=== PATIENT | female | born 1980 | race Caucasian/White ===

== ENCOUNTER → 2021-06-20 | Outpatient (CLI) | payer SELFPAY ==
--- NOTE | 2021-06-20 12:20 | EMB_PTH ---
PATIENT: LUIS MCCARTY LOC: [facility] U#:[id number] AGE/SX: 40/F ROOM: RE06/20/[address]: Dr. Satya Wild MD : 1980 BED: DIS: 06/20/2021 SPEC #: [id number] RECD: 06/20/21 16:06 STATUS: OSORIO DAMICODannie #: [id number] SANJNAA: 06/20/21 12:[address]: Satya Wild DEPT: SURGICAL PATHOLOGY RECD BY: Raffi Talbert Tissues: Endometrium, NOS Procedures: Surgery Specimen Level IV HEADER OPERATION: Endometrial biopsy PRE-OP DIAGNOSIS: N92.0 TISSUE SUBMITTED: Endometrial biopsy MICROSCOPIC DIAGNOSIS Endometrial biopsy: Disordered proliferative endometrium to simple endometrial hyperplasia without atypia. SJ:yordan 06/22/2021 COMMENT Case has been reviewed in consultation with Dr. Camargo who concurs with the above diagnosis. IDC:AM MICROSCOPIC DESCRIPTION Slides are reviewed. GROSS DESCRIPTION Received in fixative is one container labeled with the patient's name and designated EM biopsy. The specimen consists of multiple fragments of marin-white to hemorrhagic soft tissue that in aggregate measure 3 x 2.5 x 0.3 cm. The specimen is totally submitted in one cassette. / SJ:rg 06/21/21 TC:5 CPT: 55790
[2021-06-26 16:08] LABS: HPV Reflexed? NOT INDICATED
== END | disposition home or self-care (01) ==
LOC: LABSPEC 14:05
PROVIDERS: Visit Provider Obstetrics & Gynecology
DX: N92.0 Excessive and frequent menstruation with regular cycle (principal); Z12.4 Encounter for screening for malignant neoplasm of cervix
CPT/HCPCS: 88175; 88305; G0145

== ENCOUNTER 2021-08-06 05:27 | Day surgery (SDC) | payer SELFPAY ==
[2021-08-02 11:28] LABS: Hematocrit 34.4 % (37-47); Hemoglobin 10.1 g/dL (12.0-15.0); Mean Corp Hgb Conc 29.4 g/dL (32-36); Mean Corpuscular Hgb 22.5 pg (27.0-32.0); Mean Corpuscular Volume 76.6 fL (81-99); Mean Platelet Vol. 9.6 fl (6.2-12.0); Platelet Count 298 K/mm3 (150-450); RBC Distribution Width CV 18.8 % (11.6-14.6); RBC Distribution Width SD 51.4 fl (35.1-43.9); Red Blood Count 4.49 M/mm3 (4.2-5.4); White Blood Count 5.3 K/mm3 (4.4-11.0)
[2021-08-02 11:38] LABS: Prothrombin Time (Protime)PT. 12.6 SECONDS (11.7-14.9)
[2021-08-02 11:39] LABS: Partial Thromboplast Time 26.3 Seconds (24.1-36.2)
[2021-08-02 11:47] LABS: Internal QC Validated? YES +Cl - CLEAR BKGD; Pregnancy, Serum, hCG Quali. NEGATIVE Negative
[2021-08-02 12:01] LABS: Creatinine, Serum 0.82 mg/dL (0.55-1.02); EST Glomerular Filtration Rate 82 mL/min (>60); Est Glom Filt Rate - Afr Amer 99 mL/min (>60)
[2021-08-02 12:07] LABS: Magnesium 2.2 mg/dL (1.6-2.6)
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
[2021-08-06] VITALS (14 sets, daily range): BP systolic 127–170; BP diastolic 72–101; PULSE 61–89; RESP 14–16; TEMP 36–36.7; O2SAT 96–100; BMI 59.2
--- NOTE | 2021-08-06 | HYST_PTH ---
PATIENT: LUIS MCCARTY LOC: [facility] – [place] U#:[id number] AGE/SX: 40/F ROOM: RE08/06/[address]: Dr. Satya Wild MD : 1980 BED: DIS: 08/06/2021 SPEC #: [id number] RECD: 08/06/21 10:48 STATUS: OSORIO DAMICODannie #: [id number] SANJANA: 08/06/21 00:[address]: Satya Wild DEPT: SURGICAL PATHOLOGY RECD BY: Alistair Morse ENTERED: 08/06/21 13:28 SP TYPE: HYSTERECT OT DR: No Primary Care Phys Tissues: Uterus, NOS Procedures: Surgery Specimen Level V HEADER OPERATION: Lap robotic hysterectomy, BSO PRE-OP DIAGNOSIS: Dysmenorrhea, premenopausal menorrhagia, simple EM hyperplasia TISSUE SUBMITTED: Cervix, uterus, bilateral fallopian tubes, bilateral ovaries MICROSCOPIC DIAGNOSIS Uterus, hysterectomy: Cervix ? minimal chronic inflammation. Endometrial polyp ? simple hyperplasia without atypia. Endometrium ? mildly disordered proliferative endometrium. Right ovary ? follicular cysts and corpus luteal cysts. Right fallopian tube - no pathologic change. Left ovary - follicular cysts and corpus luteal cysts. Left fallopian tube - no pathologic change. AM:yordan 08/07/2021 MICROSCOPIC DESCRIPTION Slides are reviewed. GROSS DESCRIPTION Received in fixative is one container labeled with the patient's name and designated uterus. The specimen consists of a uterus with attached right and left fallopian tubes and ovaries with attached cervix. The uterus with cervix measures 8.5 x 6 x 4 cm and weighs 83 gm. The ectocervix is grossly unremarkable. The cervical os is round in contour. The endocervical canal measures 3 cm in length and is grossly unremarkable. The triangular endometrial cavity measures 3 x 3 cm. The velvety, light marin endometrium measures up to 0.2 cm in thickness. The posterior endometrial surface contains a reddish-marin polyp measuring 2.2 x 0.5 x 0.3 cm. The myometrium measures 2 cm in average thickness and is free of mass lesions. The pink-marin, smooth, glistening cystic right ovary measures 4 x 4 x 2.6 cm and weighs 22 gm. Serial sections reveal multiple cysts ranging in size from 0.5 to 2.5 cm containing clear to bloody fluid. The right fallopian tube measures 5 cm in length and 0.8 cm in average diameter. No tubo-ovarian adhesions are identified. The cystic left ovary is similar in appearance to the right ovary and measures 3.7 x 3 x 3 cm and weighs 12 gm. Serial sections of left ovary likewise reveals multiple cysts containing clear to bloody fluid. The cysts range in size from 0.5 to 1 cm. The left fallopian tube is similar in appearance to the right tube and measures 8 cm in length and 0.8 cm in average diameter. No tubo-ovarian adhesions are present. Both fallopian tubes have normal fimbriated ends. Big Data Hadoop Developer sections are submitted as follows: 1 - anterior cervix, 2 - posterior cervix, 3 - endometrial polyp, 4 & 5 - anterior uterine wall, 6 & 7 - posterior uterine wall, 8 & 9 - right fallopian tube and ovary, 10 & 11 - left fallopian tube and ovary. / AM:yordan 08/06/21 TC:5 CPT: 83459
[2021-08-06 06:13] LABS: Internal QC Validated? YES +Cl - CLEAR BKGD; Pregnancy, Urine Negative Negative
[2021-08-06] MEDS: Lactated Ringers 1,000 ML 40 ML IV ×2 (06:29→09:30)
[2021-08-06] MEDS: Acetaminophen 500 MG Tablet 1000 MG PO ×2 (06:38→15:40)
[2021-08-06] MEDS: Gabapentin 600 MG Tablet PO (06:38)
[2021-08-06 07:15] LABS: Bedside Glucose 95 mg/dL (70-110)
--- NOTE | 2021-08-06 07:32 | PCM.OPRPT ---
Report of Operation Date of Procedure: 08/06/21 Pre-Operative Diagnosis: Menorrhagia, Simple Endometrial Hyperplasia Post-Operative Diagnosis: Menorrhagia, Simple Endometrial Hyperplasia Surgery/Procedure Performed:: Robotic Assisted Vaginal Hysterectomy and Bilateral Salpingo-Oophorectomy Description of Surgical Findings:: 10 cm uterus with normal-appearing fallopian tubes and ovaries. Surgeon: Satya Wild club director: Juarez Miller Type of Anesthesia: General (Endotracheal) Anesthesiologist: Shweta Johnson Specimen's removed: Uterus and bilateral fallopian tubes and ovaries Drains: Maradiaga to straight drain Estimated Blood Loss (mL): Minimal Fluids Replaced: Crystalloid Description of Procedure: Surgeon: Satya Wild MD, FACOG Indication: This is a 40 year old patient who has been having problems with menorrhagia and simple hyperplasia. Conservative measures have not been helpful. The patient has been counseled regarding the risks, benefits and alternatives of this procedure including the possibility of bleeding, infection, and injury to surrounding structures such as bowel bladder and all questions were answered. She understands that if BSO is needed that she will need to be on HRT for an indefinite period of time. Procedure: Pt taken to the operating room where, after induction of general anesthesia, the patient was prepped and draped in the usual sterile fashion and placed on a non-slip Huggy-u-vac device. Trendelenburg test was satisfactory. Bladder was drained of urine with a Maradiaga catheter which was left in place. Anterior cervix grasped and cervix was dilated to about 3-4 mm. Uterus sounded to 9 cms. 0-Vicryl suture was placed at the 3:00 and 9:00 position of the cervix. A small [employer] Electric Motor Assembler Uterine Manipulator was then placed in the uterus and attention was turned to the laparoscopic portion of the procedure. Ropivocaine 0.5% was injected approximately 2-3 cm superior to the umbilicus and an 8 mm robotic camera port was introduced directly with intraperitoneal placement confirmed with CO2 insufflation. 8 mm robotic side ports were introduced under direct visualization approximately 11 cm lateral and 2 cm inferior to the umbilical port. A 5 mm left upper quadrant port was introduced and airseal insufflation with CO2 was started. The above findings were noted. Robot was docked without difficulty and attention turned to the robotic portion of the procedure. Approximately 30 cc of Ropivicaine was used. Bilateral infundibulopelvic ligaments were ligated with 35 brewer bipolar coagulation to the level of the round ligament. The posterior aspect of the cervix was identified and then opened for about 1 cm using 25 watt monopolar cautery. Bladder flap was opened and divided to the level of the round ligaments using monopolar cautery. Progressive bites were then ligated on each side of the cervix with 35 brewer bipolar cautery to the uterine arteries. The anterior vaginal mucosa was entered and cervix circumscribed with monopolar cautery. Uterus and attached tubes and ovaries were removed through the vagina. Vaginal cuff was closed first with 0-Vicryl Tawnya stitches placed at each angle followed by closure of the mid-cuff with 0-Monocryl V-lock suture in two layers. Pelvis was copiously irrigated with saline and the right ureter was noted to peristalse. Steve was placed across the vaginal cuff to help with some oozing and postoperative hemostasis. Robot was undocked and trocars were removed with as much gas as possible. Incisions were closed with 4-0 Monocryl subcuticular sutures and incisions covered with steri-strips. The patient tolerated the procedure well and was taken to the recovery room in satisfactory condition. Sponge, instruments and needle counts were all correct. There were no apparent complications of the surgery. Ancef 3 gms IV was given prior to the procedure. Estimated Blood Loss: Minimal Specimen to Pathology: Uterus and bilateral fallopian tubes and ovaries Grafts/Implants Used: None Complications None Admit VTE Documentation VTE Present on Admission: Yes VTE Mechan Device Prophylaxis: SCD's
--- NOTE | 2021-08-06 07:35 | PCM.DC ---
Discharge Instructions Diet Discharge Diet: No restrictions Activity Discharge Activity: May Shower and May Take a Tub Bath May resume sexual activity in: 6 weeks (nothing in the vagina.) Lifting Restrictions: 25 pounds for 6 weeks. Additional Activity Instructions:: Nothing in the vagina for 6 weeks please; no lifting more than 20-25 lbs for 6 weeks. Use Ibuprophen 800 mg orally every 8 hours as needed for pain. Can also add Tylenol 1000 mg every 8 hours if needed for pain. If Ibuprophen and Tylenol are not effective then use the Oxycodone but keep in mind it can cause serious constipation issues. Drink lots of water. Call if bleeding more than a pad per hour. Use the colace as constipation is a big issue after this type of surgery. Steps and walking are OK. Activity is encouraged but do not over do it !! Dressing / Incision Call your doctor if your incision/area has: Continuous Slow Oozing, Sudden Increased Bleeding, Increased Pain/ Swelling, Increased Redness and Foul Smelling Discharge Call your doctor if you observe: Fever of 101 or Higher, Inability to urinate, Inability to have a bowel movement, Using more than 1 pad per hour and - (Some vaginal bleeding may be noted for up to 4-8 weeks.) Cleanse incision/area with: - (Let the soapy water run over your incision, rinse and pat dry.) Additional Dressing/Incision Instructions:: The white strips (Steri Strips) on your incisions will fall off on their own. If they fall off and it bothers you it is okay to put Band-Aids across the incisions. Follow Up Care Please Follow Up With: Satya Wild MD When: Call [phone] for an appointment to be seen in 2 weeks. Test Results: Test results from this visit will be discussed in further detail at your follow-up appointment, if applicable. Discharge Plan Admission Primary Reason for Your Visit: Robotic Vaginal Hysterectomy Attending Provider: Satya Wild Primary Care Provider: Care PhysicianBeverley Primary Discharge Orders/Prescriptions Prescriptions: New oxycodone 5 mg capsule 5 mg PO Q6H PRN (Reason: pain) 7 Days Qty: 10 RF: 0 docusate sodium 100 mg tablet 100 mg PO BID PRN (Reason: constipation) Qty: 60 RF: 1 estradiol 2 mg tablet 2 mg PO DAILY Qty: 90 RF: 4 Continued ascorbic acid (vitamin C) [Vitamin C] 500 mg Capsule, Extended Release 500 mg PO DAILY RF: 0 omega-3 fatty acids Capsule 1,000 mg PO DAILY RF: 0 glucosamine [id number] 500-166.6-400 mg Tablet 1 tab PO DAILY RF: 0 Referrals / Follow Up: Care Physician,No Primary [Primary Care Provider] - Disposition Disposition (needs filled in before D/C Order can be placed): Home, Self Care
[2021-08-06] MEDS: Ropivacaine 0.5% 30 ML Vial (08:10)
[2021-08-06] MEDS: oxyCODONE 5 MG Tablet PO (13:18)
== END 2021-08-06 15:55 | disposition home or self-care (01) ==
LOC: SDC 05:28 → AC 05:28
PROVIDERS: Anesthesiology; Referring Provider Obstetrics & Gynecology; Visit Provider Obstetrics & Gynecology
PROC: 0UT94ZZ Resection of Uterus, Percutaneous Endoscopic Approach (ICD-10-PCS; CPT 58571; principal; 2021-08-06 07:10)
DX: N85.01 Benign endometrial hyperplasia (principal); N83.11 Corpus luteum cyst of right ovary; N83.12 Corpus luteum cyst of left ovary; N83.02 Follicular cyst of left ovary; N83.01 Follicular cyst of right ovary; N92.4 Excessive bleeding in the premenopausal period; Z87.891 Personal history of nicotine dependence
CPT/HCPCS: 00840; 58571; S2900; 36415; 81025; 82565; 82962; 83735; 84703; 85027; 85610; 85730; 86850; 86900; 86901; 87426; 88307; C9803; J7120; A4216; J2405